=== PATIENT | male | born 1960 | race Caucasian/White ===

== ENCOUNTER 2017-08-07 08:46 | Emergency (ER) | payer BC ==
[2017-08-07 08:53] VITALS: TEMP 98.5
[2017-08-07] MEDS ORDERED: FAMOTIDINE 20 MG/2 ML VIAL IV STA (09:11)
[2017-08-07] MEDS ORDERED: METOCLOPRAMIDE 5 MG/ML 2 ML VIAL IVP STA (09:11)
[2017-08-07] MEDS ORDERED: GLUCAGON 1 MG/ML VIAL IVP STA (09:11)
[2017-08-07] MEDS ORDERED: NITROGLYCERIN SL TABS 0.4 MG TAB SUBLINGUAL STA (09:12)
--- NOTE | 2017-08-07 09:15 | ED ---
General Adult HPI <Kiko Talavera - Last Filed: 08/07/17 11:25> - General Source: patient, RN notes reviewed Mode of arrival: ambulatory Limitations: no limitations <Julio Stevenson - Last Filed: 08/07/17 13:57> - General Chief complaint: Nausea/Vomiting/Diarrhea Stated complaint: Nausea/Vomiting Time Seen by Provider: 08/07/17 08:55 - History of Present Illness Initial comments: Patient is a 57-year-old male who presents emergency room today with chief complaint of difficulty swallowing over the last 2 days. He does admit that he had dinner Friday night. He states everything seemed to be fine. He states shortly thereafter he try to drink something noticed that it did not seem like he went all the way down he began having some symptoms of nausea vomiting. Patient states that over the last 2 days he has not eaten any solid foods due to this. He states that any liquids that he has tried come back up after drinking. Patient states that it feels like it gets stuck upper part of his abdomen. Patient does admit to flatulence. Admits normal bowel movements. Denies any other complaints. Patient denies any recent fever, chills, shortness of breath, chest pain, back pain, numbness or tingling, dysuria or hematuria, constipation or diarrhea, headaches or visual changes, or any other complaints. (Julio Stevenson) - Related Data Home Medications Medication Instructions Recorded Confirmed Acetaminophen Tab [Tylenol Tab] 325 - 650 mg PO Q6H PRN 08/07/17 08/07/17 Allergies Allergy/AdvReac Type Severity Reaction Status Date / Time No Known Allergies Allergy Verified 08/07/17 09:11 Review of Systems ROS Other: All systems not noted in ROS Statement are negative. <Kiko Talavera - Last Filed: 08/07/17 11:25> ROS Other: All systems not noted in ROS Statement are negative. <Julio Stevenson - Last Filed: 08/07/17 13:57> ROS Statement: Those systems with pertinent positive or pertinent negative responses have been documented in the HPI. Past Medical History Past Medical History: No Reported History History of Any Multi-Drug Resistant Organisms: None Reported Past Surgical History: Adenoidectomy, Appendectomy, Tonsillectomy Past Psychological History: No Psychological Hx Reported Smoking Status: Never smoker Past Alcohol Use History: Rare Past Drug Use History: None Reported <Julio Stevenson - Last Filed: 08/07/17 13:57> General Exam <Kiko Talavera - Last Filed: 08/07/17 11:25> Limitations: no limitations <Julio Stevenson - Last Filed: 08/07/17 13:57> - General Exam Comments Initial Comments: General: The patient is awake and alert, in no distress, and does not appear acutely ill. Eye: Pupils are equal, round and reactive to light, extra-ocular movements are intact. No nystagmus. There is normal conjunctiva bilaterally. No signs of icterus. Ears, nose, mouth and throat: There are moist mucous membranes and no oral lesions. Neck: The neck is supple, there is no tenderness or JVD. Cardiovascular: There is a regular rate and rhythm. No murmur, rub or gallop is appreciated. Respiratory: Lungs are clear to auscultation, respirations are non-labored, breath sounds are equal. No wheezes, stridor, rales, or rhonchi. Gastrointestinal: Soft, non-distended, non-tender abdomen without masses or organomegaly noted. There is no rebound or guarding present. No CVA tenderness. Bowel sounds are unremarkable. Musculoskeletal: Normal ROM, no tenderness. Strength 5/5. Sensation intact. Pulses equal bilaterally 2+. Neurological: A&O x 3. CN II-XII intact, There are no obvious motor or sensory deficits. Coordination appears grossly intact. Speech is normal. Skin: Skin is warm and dry and no rashes or lesions are noted. Psychiatric: Cooperative, appropriate mood & affect, normal judgment. (Julio Stevenson) Course <Kiko Talavera - Last Filed: 08/07/17 11:25> <Julio Stevenson - Last Filed: 08/07/17 13:57> Vital Signs 08/07/17 08/07/17 08/07/17 08:50 09:50 13:43 Temperature 98.5 F Pulse Rate 98 81 92 Respiratory 16 16 20 Rate Blood Pressure 117/113 132/82 120/67 O2 Sat by Pulse 93 L 98 98 Oximetry - Reevaluation(s) Reevaluation #1: 08/07/17 11:25 Patient was reevaluated by myself, Dr. Talavera. Patient resting comfortably in bed. Patient unable to tolerate oral intake since Friday evening. Patient updated on results and plan. Case was discussed with Dr. Gamez who will come in for endoscopy. (Kiko Talavera) Medical Decision Making - Lab Data Result diagrams: 08/07/17 09:40 08/07/17 09:40 <Kiko Talavera - Last Filed: 08/07/17 11:25> - Lab Data Result diagrams: 08/07/17 09:40 08/07/17 09:40 <Julio Stevenson - Last Filed: 08/07/17 13:57> - Medical Decision Making Patient reexamined at this juncture no signs of distress. Patient was seen here in the emergency room by Dr. Ponce I did perform an EGD removing a large piece of food. Patient feeling well at this time is alert and oriented. Will be discharged home. Advised to return for any other concerns. (Julio Stevenson) - Lab Data Lab Results 08/07/17 08/07/17 Range/Units 09:40 09:40 WBC 8.8 (3.8-10.6) k/uL RBC 5.25 (4.30-5.90) m/uL Hgb 15.8 (13.0-17.5) gm/dL Hct 47.0 (39.0-53.0) % MCV 89.6 (80.0-100.0) fL MCH 30.1 (25.0-35.0) pg MCHC 33.6 (31.0-37.0) g/dL RDW 13.3 (11.5-15.5) % Plt Count 354 (150-450) k/uL Neutrophils % 80 % Lymphocytes % 10 % Monocytes % 7 % Eosinophils % 2 % Basophils % 0 % Neutrophils # 7.1 (1.3-7.7) k/uL Lymphocytes # 0.9 L (1.0-4.8) k/uL Monocytes # 0.6 (0-1.0) k/uL Eosinophils # 0.2 (0-0.7) k/uL Basophils # 0.0 (0-0.2) k/uL Sodium 142 (137-145) mmol/L Potassium 4.4 (3.5-5.1) mmol/L Chloride 107 (98-107) mmol/L Carbon Dioxide 21 L (22-30) mmol/L Anion Gap 14 mmol/L BUN 31 H (9-20) mg/dL Creatinine 1.00 (0.66-1.25) mg/dL Est GFR (MDRD) Af Amer >60 (>60 ml/min/1.73 sqM) Est GFR (MDRD) Non-Af >60 (>60 ml/min/1.73 sqM) Glucose 93 (74-99) mg/dL Calcium 9.9 (8.4-10.2) mg/dL Total Bilirubin 1.0 (0.2-1.3) mg/dL AST 24 (17-59) U/L ALT 44 (21-72) U/L Alkaline Phosphatase 99 (38-126) U/L Total Protein 7.9 (6.3-8.2) g/dL Albumin 4.6 (3.5-5.0) g/dL Amylase 45 (30-110) U/L Lipase 65 (23-300) U/L Disposition <Kiko Talavera - Last Filed: 08/07/17 11:25> Time of Disposition: 13:57 <Julio Stevenson - Last Filed: 08/07/17 13:57> Clinical Impression: Esophageal foreign body Disposition: HOME SELF-CARE Condition: Good Instructions: Esophageal Foreign Body (ED) Additional Instructions: Please follow-up with family doctor in the next 2 days of symptoms have not improved. Please return to emergency room if the symptoms increase or worsen or for any other concerns. Referrals: Rubén June DO [Primary Care Provider] - 1-2 days
[2017-08-07 09:54] LABS: Basophils % (A) 0 %; CH 30.9; CHCM 34.7; Eosinophils # (A) 0.2 k/uL (0-0.7); Eosinophils % (A) 2 %; HDW 2.74; HGB 15.8 gm/dL (13.0-17.5); Luc # (Auto) 0.15; Luc % (Auto) 2; Lymphocytes # (A) 0.9 k/uL (1.0-4.8); Lymphocytes % (A) 10 %; MCH 30.1 pg (25.0-35.0); MCHC 33.6 g/dL (31.0-37.0); MCV 89.6 fL (80.0-100.0); Mean Platelet Volume 6.6; Monocytes # (A) 0.6 k/uL (0-1.0); Monocytes % (A) 7 %; Neutrophils # (A) 7.1 k/uL (1.3-7.7); Neutrophils % (A) 80 %; RBC 5.25 m/uL (4.30-5.90); RDW 13.3 % (11.5-15.5); WBC 8.8 k/uL (3.8-10.6); WBC (Perox) 9.03
[2017-08-07 10:02] LABS: ALT 44 U/L (21-72); AST 24 U/L (17-59); Alkaline Phosphatase 99 U/L (38-126); Amylase 45 U/L (30-110); Anion Gap 14 mmol/L; Blood Urea Nitrogen 31 mg/dL (9-20); Calcium 9.9 mg/dL (8.4-10.2); Carbon Dioxide 21 mmol/L (22-30); Chloride 107 mmol/L (98-107); Glucose 93 mg/dL (74-99); Non-African American GFR(MDRD) >60 (>60 ml/min/1.73 sqM); Potassium 4.4 mmol/L (3.5-5.1); Sodium 142 mmol/L (137-145); Total Protein 7.9 g/dL (6.3-8.2)
--- NOTE | 2017-08-07 10:31 | XR ---
EXAMINATION TYPE: XR KUB DATE OF EXAM: 08/07/2017 COMPARISON: NONE HISTORY: Pain TECHNIQUE: Single supine KUB image of the abdomen is obtained FINDINGS: Small bowel demonstrates no evidence for dilatation or air fluid levels. Gas and fecal material is seen in non-distended colon. No convincing evidence for pneumoperitoneum. No unusual calcifications. The lung bases are clear. The osseous structures are intact. IMPRESSION: 1. Overall nonobstructive bowel gas pattern.
--- NOTE | 2017-08-07 10:32 | XR ---
EXAMINATION TYPE: XR chest 2V DATE OF EXAM: 08/07/2017 COMPARISON: NONE HISTORY: Shortness of breath TECHNIQUE: Frontal and lateral views of the chest are obtained. FINDINGS: Scattered senescent parenchymal changes noted. Hyperinflation compatible with COPD. No evidence for infiltrate. No evidence for atelectasis. Heart size is stable. Mediastinal structures are stable and grossly unremarkable. No evidence for hilar prominence. Degenerative changes dorsal spine. IMPRESSION: 1. No evidence for acute pulmonary disease.
[2017-08-07] MEDS ORDERED: LIDOCAINE 1% INJ 10MG/ML (20 ML MDV) ONE (12:53)
[2017-08-07] MEDS ORDERED: PROPOFOL 10 MG/ML 20 ML VIAL IV ONE (12:53)
[2017-08-07] MEDS ORDERED: SODIUM CHLORIDE 0.9% 500 ML IV ONE ×2 (13:00)
--- NOTE | 2017-08-07 13:57 | P.PCN ---
Date of Procedure: 08/07/17 Procedure(s) Performed: Procedure: Esophagogastroduodenoscopy and biopsy with removal of esophageal foreign body. Preoperative diagnosis: Obstructive dysphagia. Postoperative diagnosis: 1. Impacted piece of meat in the distal esophagus removed with the snare. 2. 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 3. Longitudinal tear in the mid esophagus probably related to the meat impaction. 4. Hiatal hernia and gastritis. 5. Biopsies obtained from the antrum and esophagus. Preparation and sedation: Was provided by anesthesia. Brief clinical history: The patient is a 57-year-old male who presented to the emergency room with inability to swallow including inability to swallow his saliva that started around 48 hours prior after he was eating meat. This has not happened in the past and he denied any history of reflux, heartburn or dysphagia. No unintentional weight loss or black stools. Procedure: With the patient on his left lateral decubitus position and after informed consent and adequate sedation, I passed the Olympus-GIF 160 video upper endoscope through the cricopharyngeus into the esophagus. The impacted piece of meat was seen in the distal esophagus. The esophagus appeared corrugated raising the possibility of eosinophilic esophagitis and there was a longitudinal esophageal tear in the mid esophagus that could be seen proximal to the impacted piece of meat. At this point, I proceeded to capture the piece of meat with the snare and remove it by withdrawing the endoscope. I then reintroduced the endoscope and inspected the esophagus. In addition to the corrugation there was a short stricture at the level of the GE junction just proximal to a hiatal hernia. This stricture did not impede the advancement of the endoscope into the stomach which was insufflated with air and inspected in detail including the retroflex view in the cardia. The hiatal hernia was around 2 cm in size. There was some mottling and erythema in the antrum but no ulcers or erosions. Pyloric channel, duodenal bulb, post bulbar area and descending duodenum appeared within normal limits. There was no evidence of bleeding during this exam and no other pathology noted. I obtained biopsies from the antrum and esophagus then the endoscope was withdrawn. The patient tolerated the procedure well. Plan: The patient and the family were briefed about the findings of this exam. He will stay on clear liquid diet today and I wrote a prescription for omeprazole 20 mg daily. I would like to see him in the office in 1-2 months to discuss his progress and the biopsy results and to decide if other therapy besides acid suppression is indicated or if he needs future dilation. I will keep you updated on his progress.
[2017-08-07 14:16] VITALS: BP 127/83; PULSE 84; RESP 18
== END 2017-08-07 14:12 | disposition home or self-care (01) ==
LOC: EC 08:46
DX: T18.108A Unspecified foreign body in esophagus causing other injury, initial encounter (principal); Z90.49 Acquired absence of other specified parts of digestive tract
CPT/HCPCS: 99284; 96374; 96375 ×2; 36415; 88305; 80053; 82150; 83690; 85025; 88312; 88342; 71020; 74000; 43239; 43247; J1610; J2765; J2001; J2704

== ENCOUNTER → 2017-10-15 | Outpatient (CLI) | payer BC ==
[2017-10-16 02:35] LABS: Soybean IgE <0.10 kU/L
[2017-10-16 02:36] LABS: Peanut IgE <0.10 kU/L
[2017-10-16 02:37] LABS: Codfish IgE <0.10 kU/L; Egg White IgE <0.10 kU/L
[2017-10-17 13:18] LABS: Tuna IgE <0.35 kU/L (<0.35); Tuna IgE Class CLASS 0
== END | disposition home or self-care (01) ==
LOC: LABWHC1 16:40
PROVIDERS: ATTEND Allergy & Immunology
DX: K20.0 Eosinophilic esophagitis (principal)
CPT/HCPCS: 36415; 86003

== ENCOUNTER 2018-01-01 08:56 | Day surgery (SDC) | payer BC ==
[2017-12-30 15:54] VITALS: BMI 27.2
[~2018-01-01 08:56] MED LIST: LACTATED RINGERS 1,000 ML IV SCH
[2018-01-01 09:37] VITALS: RESP 18; TEMP 98.6
[2018-01-01] MEDS ORDERED: LACTATED RINGERS 1,000 ML IV ONE (09:37)
[2018-01-01] MEDS ORDERED: LIDOCAINE 1% 20 ML VIAL (10MG/ML) FOR IV START INTRADERMA ONE (09:44)
[2018-01-01] MEDS ORDERED: LIDOCAINE 1% INJ 10MG/ML (20 ML MDV) ONE (10:27)
[2018-01-01] MEDS ORDERED: PROPOFOL 10 MG/ML 20 ML VIAL IV ONE (10:27)
--- NOTE | 2018-01-01 11:17 | P.PCN ---
Date of Procedure: 01/01/18 Procedure(s) Performed: Procedure: Esophagogastroduodenoscopy and biopsy. Preoperative diagnosis: History of eosinophilic esophagitis. Postoperative diagnosis: 1. Corrugated esophagus and nonobstructing distal stricture and she'll do diverticulation consistent with eosinophilic esophagitis. 2. Small hiatal hernia. 3. Mild gastritis and duodenitis. 4. Biopsies obtained from the duodenum, antrum and esophagus. Preparation sedation: Was provided by anesthesia. Brief clinical history: The patient is a 57-year-old male who had an impacted piece of meat in the distal esophagus requiring endoscopic intervention back in July 2017. The patient was found to have eosinophilic esophagitis and was placed on acid suppressive therapy for 2-3 months after that. No dietary triggers has been found. This evaluation is to assess his esophagitis after PPI therapy and guide the next steps. Procedure: With the patient on his left lateral decubitus position and after informed consent and adequate sedation, I passed the Olympus-GIF 160 video upper endoscope through the cricopharyngeus down the esophagus. The esophagus showed corrugations and there was a nonobstructing strictures at the level of the GE junction with pseudo-diverticulations proximal to that area. The findings are consistent with eosinophilic esophagitis. The endoscope was then passed to the rest of the stomach which was insufflated with air and inspected in detail including the retroflex view in the cardia. There was minimal mottling and erythema in the antrum but no ulcers or erosions. No pyloric channel ulcers. Duodenal bulb, post bulbar area and descending duodenum showed minimal erythema without ulcers or erosions. I obtained biopsies from the duodenum, antrum and esophagus then the endoscope was withdrawn. The patient tolerated the procedure well. Plan: I shared the findings with the patient. I will see him in follow-up in the office and make additional recommendations regarding his future management based on his course and biopsy results. I will keep you updated on his progress.
[2018-01-01 11:24] VITALS: BP 151/87; PULSE 81
== END 2018-01-01 11:37 | disposition home or self-care (01) ==
LOC: ORWHC2ENDO 08:56
DX: K20.9 Esophagitis, unspecified (principal); K29.50 Unspecified chronic gastritis without bleeding; K44.9 Diaphragmatic hernia without obstruction or gangrene; K22.2 Esophageal obstruction; K29.80 Duodenitis without bleeding
CPT/HCPCS: 88305; 43239; J2001; J2704